=== PATIENT | female | born 1985 | race Caucasian/White ===

== ENCOUNTER 2016-12-17 08:34 | Emergency (ER) | payer MEDICAID ==
[~2016-12-17] VITALS: Ht 154.9 cm; Wt 62.0 kg
[2016-12-17 08:47] VITALS: BP 109/51
== END 2016-12-17 10:18 | disposition home or self-care (01) ==
LOC: ER 09:33
DX: S01.01XD Laceration without foreign body of scalp, subsequent encounter (principal); F17.200 Nicotine dependence, unspecified, uncomplicated
CPT/HCPCS: 99281

== ENCOUNTER 2016-12-22 20:41 | Emergency (ER) | payer MEDICAID ==
[~2016-12-22] VITALS: Ht 154.9 cm; Wt 62.0 kg
[2016-12-22 20:51] VITALS: BP 115/55
== END 2016-12-22 23:35 | disposition home or self-care (01) ==
LOC: ER 20:42
DX: S01.81XD Laceration without foreign body of other part of head, subsequent encounter (principal); Z48.02 Encounter for removal of sutures; F17.200 Nicotine dependence, unspecified, uncomplicated; X58.XXXD Exposure to other specified factors, subsequent encounter
CPT/HCPCS: 99282

== ENCOUNTER 2020-01-05 18:18 | Emergency (ER) | payer MEDICAID ==
[~2020-01-05] VITALS: Ht 154.9 cm; Wt 59.0 kg
[2020-01-05] MEDS ORDERED: ACETAMINOPHEN 325MG TABLET PO ONE (20:15)
[2020-01-05] MEDS ORDERED: ONDANSETRON HCL 4MG/2ML INJ IV STA (20:27)
[2020-01-05] MEDS ORDERED: MORPHINE SULFATE 4 MG/ML CPJ (NOT FOR IM USE) IV STA (20:27)
[2020-01-05 20:51] LABS: BASOPHILS % 0.3 % (0.0-2.0); EOSINOPHILS % 0.3 % (0.0-5.0); HEMATOCRIT. 43.2 % (36.0-48.0); HEMOGLOBIN. 14.8 g/dL (12.0-16.0); LYMPHOCYTES % 7.9 % (20.0-50.0); MEAN CORPUSCULAR HEMOGLOBIN 31.1 pg (28.0-32.0); MEAN CORPUSCULAR VOLUME 91.2 fL (81.0-99.0); MEAN PLATELET VOLUME 9.7 fl (7.4-10.4); MONOCYTES % 6.2 % (2.0-8.0); NEUTROPHILS % 85.3 % (40.0-76.0); PLATELET 191 x1000/uL (130-400); RED BLOOD CELL COUNT 4.74 mill/uL (4.2-5.4); RED CELL DISTRIBUTION WIDTH 13.6 % (11.6-14.6)
[2020-01-05 20:57] LABS: CHLORIDE 106 mEq/L (98-107)
[2020-01-05 21:05] LABS: HCG SCREEN NEGATIVE
[2020-01-05] MEDS ORDERED: IOHEXOL-300 100 ML BOTTLE ONE (23:12)
[2020-01-05 23:30] VITALS: BP 121/75
== END 2020-01-06 00:05 | disposition home or self-care (01) ==
LOC: ER 18:18
DX: S00.83XA Contusion of other part of head, initial encounter (principal); R10.9 Unspecified abdominal pain; V49.59XA Passenger injured in collision with other motor vehicles in traffic accident, initial encounter; Y93.89 Activity, other specified; Y92.89 Other specified places as the place of occurrence of the external cause; Y99.8 Other external cause status
CPT/HCPCS: 36415; 70450; 70486; 71045; 74177; 80048; 81025; 84703; 85025; 96374; 96375; 99285; J2270; J2405; Q9967

== ENCOUNTER 2020-10-20 16:26 | Emergency (ER) | payer MEDICAID ==
[~2020-10-20] VITALS: Ht 154.9 cm; Wt 61.0 kg
[2020-10-20 16:36] VITALS: BP 113/80
== END 2020-10-20 17:55 | disposition left against medical advice (07) ==
LOC: ER 16:26
DX: Z53.21 Procedure and treatment not carried out due to patient leaving prior to being seen by health care provider (principal)

== ENCOUNTER 2021-02-22 00:42 | Emergency (ER) | payer MEDICAID | END 2021-02-22 02:26 | disposition left against medical advice (07) | LOC: ER 01:53 | DX: M54.9 Dorsalgia, unspecified (principal); Z53.21 Procedure and treatment not carried out due to patient leaving prior to being seen by health care provider ==

== ENCOUNTER 2021-02-27 13:33 | Emergency (ER) | payer MEDICAID ==
[~2021-02-27] VITALS: Ht 152.4 cm; Wt 63.0 kg
[2021-02-27] MEDS ORDERED: IBUPROFEN 600MG TABLET PO ONE (17:15)
[2021-02-27 17:48] LABS: CLARITY URINE CLOUDY (CLEAR); COLOR URINE YELLOW (YELLOW); KETONES URINE NEGATIVE (NEGATIVE); LEUKOCYTE ESTERASE URINE NEGATIVE (NEGATIVE); NITRITE URINE NEGATIVE (NEGATIVE); OCCULT BLOOD URINE NEGATIVE (NEGATIVE); PROTEIN URINE NEGATIVE (NEGATIVE); UROBILINOGEN URINE 0.2 E.U./dL (0.2-1.0)
[2021-02-27 17:50] LABS: BASOPHILS % 0.3 % (0.0-2.0); EOSINOPHILS % 1.6 % (0.0-5.0); LYMPHOCYTES % 15.7 % (20.0-50.0); MEAN CORPUSCULAR HEMOGLOBIN 32.3 pg (28.0-32.0); MEAN CORPUSCULAR VOLUME 92.3 fL (81.0-99.0); MONOCYTES % 5.3 % (2.0-8.0); NEUTROPHILS % 77.1 % (40.0-76.0); RED BLOOD CELL COUNT 4.33 mill/uL (4.2-5.4)
[2021-02-27 17:56] LABS: CHLORIDE 105 mEq/L (98-107)
[2021-02-27 17:57] LABS: HCG SCREEN NEGATIVE
[2021-02-27 18:06] LABS: B-HCG QUANTITATIVE < 1 mIU/mL (<3)
[2021-02-27 18:11] LABS: PLATELET 188 x1000/uL (130-400)
[2021-02-27] MEDS ORDERED: METR500T MT (19:27)
[2021-02-27] MEDS ORDERED: VALA10002 MT (19:27)
[2021-02-27] MEDS ORDERED: FLUCONAZOLE 150MG TABLET PO ONE (19:30)
[2021-02-27] MEDS ORDERED: AZITHROMYCIN 500 MG TABLET PO ONE (19:30)
[2021-02-27] MEDS ORDERED: CEFTRIAXONE SODIUM 500 MG/VIAL IM ONE (19:30)
[2021-02-27 20:07] VITALS: BP 109/76
== END 2021-02-27 20:13 | disposition home or self-care (01) ==
LOC: ER 13:33
DX: R10.2 Pelvic and perineal pain (principal); M54.5 Low back pain; D72.829 Elevated white blood cell count, unspecified; N88.8 Other specified noninflammatory disorders of cervix uteri; Y93.89 Activity, other specified; V49.49XA Driver injured in collision with other motor vehicles in traffic accident, initial encounter; Y92.488 Other paved roadways as the place of occurrence of the external cause; Z97.5 Presence of (intrauterine) contraceptive device
CPT/HCPCS: 36415; 76830; 76856; 80053; 81003; 81025; 84702; 84703; 85025; 99284; J0696